=== PATIENT | male | born 1995 | race African-American/Black ===

== ENCOUNTER 2018-06-08 07:07 | Emergency (ER) | payer OTHER ==
[~2018-06-08] VITALS: Ht 188 cm; Wt 104.5 kg
[2018-06-08] MEDS ORDERED: ONDANSETRON 4MG/2ML VIAL (J2405) IV ONE (07:45)
[2018-06-08] MEDS ORDERED: GI COCKTAIL 50ML BTL(HYOSCYAMINE/MAALOX/LIDOCAINE VISCOUS)(1:3:1) PO ONE (07:45)
[2018-06-08 08:06] LABS: BASO % 0.3 % (0.0-1.0); EOS # 0.1 10^3/uL (0.0-0.50); EOS % 1.3 % (0.0-3.0); HEMOGLOBIN 15.6 g/dl (13.5-17.5); LYMPH # 2.6 10^3/uL (1.5-6.5); LYMPH % 43.8 % (24.0-44.0); MEAN CORPUSCULAR HEMOGLOBIN 29.5 pg (27.0-33.0); MEAN CORPUSCULAR HGB CONC 32.5 g/dl (32.0-36.5); MEAN CORPUSCULAR VOLUME 90.7 fl (80.0-96.0); MONO # 0.6 10^3/uL (0.0-0.8); MONO % 10.5 % (0.0-5.0); NEUTROPHILS # 2.6 10^3/uL (1.8-7.7); NEUTROPHILS % 43.9 % (36.0-66.0); PLATELET COUNT, AUTOMATED 192 10^3/uL (150-450); RED BLOOD COUNT 5.29 10^6/uL (4.30-6.10)
[2018-06-08 08:15] LABS: BLOOD UREA NITROGEN 13 MG/DL (7-18); CALCIUM LEVEL 9.2 MG/DL (8.5-10.1); CARBON DIOXIDE LEVEL 29 MEQ/L (21-32); CHLORIDE LEVEL 105 MEQ/L (98-107); CPK CREATINE PHOSPHOKINASE 450 U/L (39-308); CREATININE FOR GFR 1.03 MG/DL (0.70-1.30); GLOMERULAR FILTRATION RATE > 60.0 (>60); GLUCOSE, FASTING 113 MG/DL (70-100); MB/CK RELATIVE INDEX 0.56 (< OR =4); POTASSIUM SERUM 4.4 MEQ/L (3.5-5.1); SODIUM LEVEL 139 MEQ/L (136-145); TROPONIN I < 0.02 NG/ML (< 0.10)
[2018-06-08] MEDS ORDERED: PROTPAK PO (08:23)
--- NOTE | 2018-06-08 08:24 | REP ---
Portable chest: Single view. History: Chest pain. Comparison study: No comparison study. Findings: EKG monitoring electrodes overlie the chest. Lungs are well inflated and clear. Heart size is normal. Pulmonary vasculature is not increased. The pleural angles are sharp. No bony abnormality is seen. Impression: Negative portable chest x-ray. Electronically Signed by Tone Álvarez MD 06/08/2018 08:15 A
[2018-06-08 09:00] VITALS: BP 143/67
--- NOTE | 2018-06-08 18:41 | ECGEPIP ---
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
== END 2018-06-08 09:19 | disposition home or self-care (01) ==
LOC: M ED 07:07
DX: K21.9 Gastro-esophageal reflux disease without esophagitis (principal); I44.0 Atrioventricular block, first degree
CPT/HCPCS: 71045; 80048; 82550; 82553; 84484; 85025; 93005; 93041; 94760; 96374; 99284; J2405

== ENCOUNTER 2018-09-03 21:41 | Emergency (ER) | payer OTHER ==
[~2018-09-03] VITALS: Ht 185.4 cm; Wt 100.0 kg
[~2018-09-03 21:41] MED LIST: PROTPAK PO
[2018-09-03] MEDS ORDERED: CHLO125TA PO (21:51)
[2018-09-03] MEDS ORDERED: CARV25TA PO (21:51)
[2018-09-03] MEDS ORDERED: LISI10TA4 PO (21:52)
[2018-09-03] MEDS ORDERED: NORCO, ANEXSIA 5/325MG TABLET (HYDROcodone/ACETAMINOPHEN) PO ONE (23:15)
--- NOTE | 2018-09-03 23:19 | REPVR ---
EXAM: CT Head Without Contrast EXAM DATE/TIME: 09/03/2018 10:40 PM CLINICAL HISTORY: 23 years old, male; Signs and symptoms; Syncope and collapse; Additional info: Trauma TECHNIQUE: Imaging protocol: Axial computed tomography images of the head without contrast. Radiation optimization: All CT scans at this facility use at least one of these dose optimization techniques: automated exposure control; mA and/or kV adjustment per patient size (includes targeted exams where dose is matched to clinical indication); or iterative reconstruction. COMPARISON: No relevant prior studies available. FINDINGS: Brain: No CT evidence of acute intracranial hemorrhage or acute territorial infarction. No significant mass effect or midline shift. Basal cisterns patent. Ventricles: Normal in size and configuration. Bones/joints: No acute osseous abnormality. Sinuses: Minimal ethmoid mucosal thickening. Mastoid air cells: Grossly unremarkable. Soft tissues: Grossly unremarkable. IMPRESSION: 1. No CT evidence of acute intracranial pathology. 2. Additional findings, as above. Electronically signed by: Alonzo Casarez On 09/03/2018 23:19:28 PM
--- NOTE | 2018-09-03 23:21 | REPVR ---
EXAM: CT Cervical Spine Without Contrast EXAM DATE/TIME: 09/03/2018 10:40 PM CLINICAL HISTORY: 23 years old, male; Neck pain; Additional info: Trauma TECHNIQUE: Imaging protocol: Axial computed tomography images of the cervical spine without contrast. Coronal and sagittal reformatted images were created and reviewed. Radiation optimization: All CT scans at this facility use at least one of these dose optimization techniques: automated exposure control; mA and/or kV adjustment per patient size (includes targeted exams where dose is matched to clinical indication); or iterative reconstruction. COMPARISON: No relevant prior studies available. FINDINGS: Vertebrae: Mild reversal of the normal cervical lordosis. Alignment anatomic. No CT evidence of acute fracture, dislocation or subluxation. Vertebral body heights maintained. Discs/Spinal canal/Neural foramina: Intervertebral disc spaces preserved. No significant spinal canal or neural foraminal stenosis. Soft tissues: Grossly unremarkable. Lungs: Grossly unremarkable. IMPRESSION: 1. No CT evidence of acute cervical spine traumatic injury. 2. Additional findings, as above. Electronically signed by: Alonzo Casarez On 09/03/2018 23:21:40 PM
[2018-09-04 01:26] VITALS: BP 150/98
--- NOTE | 2018-09-04 03:46 | REP ---
Clinical: Right shoulder pain with prior trauma . Technique: Internal rotation, external rotation, and Y view. Findings: No acute fracture or dislocation. The acromioclavicular and glenohumeral joints are intact. No periarticular calcifications or degenerative changes are appreciated. Sub acromial space is normal. Surrounding soft tissues are unremarkable. Impression: Normal right shoulder radiographs. Electronically Signed by Ja Talavera MD 09/04/2018 03:37 A
--- NOTE | 2018-09-05 07:36 | ECGEPIP ---
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
== END 2018-09-04 01:46 | disposition home or self-care (01) ==
LOC: M ED 21:41
DX: M79.621 Pain in right upper arm (principal); F41.0 Panic disorder [episodic paroxysmal anxiety]

== ENCOUNTER 2018-10-03 17:44 | Emergency (ER) | payer OTHER ==
[~2018-10-03] VITALS: Ht 188 cm; Wt 100.0 kg
[2018-10-03 17:44] VITALS: BP 181/98
[~2018-10-03 17:44] MED LIST changes: +CARV25TA PO; +CHLO125TA PO; +LISI10TA4 PO
[2018-10-03] MEDS ORDERED: BENA25CA4 PO (17:49)
== END 2018-10-03 18:49 | disposition left against medical advice (07) ==
LOC: M ED 17:44
DX: Z53.21 Procedure and treatment not carried out due to patient leaving prior to being seen by health care provider (principal)

== ENCOUNTER 2018-11-19 11:02 | Emergency (ER) | payer OTHER ==
[~2018-11-19] VITALS: Ht 185.4 cm; Wt 106.2 kg
[2018-11-19 11:02] VITALS: BP 185/107
[~2018-11-19 11:02] MED LIST changes: +BENA25CA4 PO
== END 2018-11-19 13:40 | disposition left against medical advice (07) ==
LOC: M ED 11:02
DX: Z53.21 Procedure and treatment not carried out due to patient leaving prior to being seen by health care provider (principal)

== ENCOUNTER 2019-12-02 07:17 | Emergency (ER) | payer OTHER ==
[~2019-12-02] VITALS: Ht 185.4 cm; Wt 100.0 kg
[2019-12-02] MEDS ORDERED: GI COCKTAIL 50ML BTL(HYOSCYAMINE/MAALOX/LIDOCAINE VISCOUS)(1:3:1) PO ONE (07:45)
[2019-12-02 08:02] LABS: BASO % 0.2 % (0.0-1.0); EOS # 0.1 10^3/uL (0.0-0.5); HEMATOCRIT 43.2 % (42.0-52.0); HEMOGLOBIN 14.4 g/dl (13.5-17.5); LYMPH # 2.5 10^3/uL (1.5-5.0); LYMPH % 42.8 % (24.0-44.0); MEAN CORPUSCULAR HEMOGLOBIN 30.6 pg (27.0-33.0); MEAN CORPUSCULAR HGB CONC 33.3 g/dl (32.0-36.5); MEAN CORPUSCULAR VOLUME 91.9 fl (80.0-96.0); MONO # 0.6 10^3/uL (0.0-0.8); MONO % 9.7 % (0.0-5.0); NEUTROPHILS # 2.7 10^3/uL (1.5-8.5); NEUTROPHILS % 46.1 % (36.0-66.0); PLATELET COUNT, AUTOMATED 170 10^3/uL (150-450); WHITE BLOOD COUNT 5.9 10^3/uL (4.0-10.0)
[2019-12-02 08:12] LABS: INR 0.89; PROTHROMBIN TIME 12.2 SECONDS (11.8-14.0)
[2019-12-02 08:13] LABS: PARTIAL THROMBOPLASTIN TIME 23.5 SECONDS (25.0-38.4)
[2019-12-02 08:25] LABS: ERYTHROCYTE SEDIMENTATION RATE 2 mm/hr (0-15)
[2019-12-02 08:33] LABS: ALBUMIN 3.8 GM/DL (3.2-5.2); ALT/SGPT 64 U/L (12-78); BILIRUBIN,DIRECT < 0.1 MG/DL (0.0-0.2); BILIRUBIN,TOTAL 0.4 MG/DL (0.2-1.0); BLOOD UREA NITROGEN 7 MG/DL (7-18); CALCIUM LEVEL 8.9 MG/DL (8.5-10.1); CARBON DIOXIDE LEVEL 25 MEQ/L (21-32); CHLORIDE LEVEL 108 MEQ/L (98-107); CPK CREATINE PHOSPHOKINASE 454 U/L (39-308); CREATININE FOR GFR 1.12 MG/DL (0.70-1.30); GLOMERULAR FILTRATION RATE > 60.0 (>60); GLUCOSE, FASTING 113 MG/DL (70-100); MB/CK RELATIVE INDEX 0.66 (< OR =4); POTASSIUM SERUM 3.7 MEQ/L (3.5-5.1); SODIUM LEVEL 141 MEQ/L (136-145); TOTAL PROTEIN 7.6 GM/DL (6.4-8.2); TROPONIN I < 0.02 NG/ML (< 0.10)
[2019-12-02] MEDS ORDERED: KETOROLAC 30 MG/ML 1ML VIAL IV ONE (09:00)
[2019-12-02] MEDS ORDERED: PRIL20TA2 PO (09:17)
[2019-12-02] MEDS ORDERED: SUCR1TA PO (09:17)
[2019-12-02 09:40] VITALS: BP 167/74
--- NOTE | 2019-12-11 11:34 | ECGEPIP ---
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
--- NOTE | 2019-12-30 10:51 | REP ---
PORTABLE CHEST X-RAY CLINICAL: Chest pain. COMPARISON: 06/08/2018. FINDINGS: Mediastinum and cardiac silhouette normal. Lung duenas clear without focal consolidation, effusion, or pneumothorax. Skeletal structures are intact. IMPRESSION: No acute cardiopulmonary process or focal consolidation. MTDD
== END 2019-12-02 09:41 | disposition home or self-care (01) ==
LOC: M ED 07:17 → EDBD 07:17 → M ED 09:41
DX: K21.0 Gastro-esophageal reflux disease with esophagitis (principal); F17.200 Nicotine dependence, unspecified, uncomplicated; Z91.018 Allergy to other foods; I44.0 Atrioventricular block, first degree

== ENCOUNTER 2019-12-02 18:17 | Emergency (ER) | payer OTHER ==
[~2019-12-02] VITALS: Ht 185.4 cm; Wt 113.9 kg
[~2019-12-02 18:17] MED LIST changes: +PRIL20TA2 PO; +SUCR1TA PO
[2019-12-02] MEDS ORDERED: GI COCKTAIL 50ML BTL(HYOSCYAMINE/MAALOX/LIDOCAINE VISCOUS)(1:3:1) PO ONE (20:00)
[2019-12-02] MEDS ORDERED: SUCRALFATE 1 GM TAB PO ONE (20:00)
[2019-12-02] MEDS ORDERED: FAMOTIDINE 20 MG TAB PO ONE (20:00)
[2019-12-02] MEDS ORDERED: OMEPRAZOLE 20 MG CAP PO ONE (20:00)
[2019-12-02 20:34] LABS: BASO % 0.3 % (0.0-1.0); EOS # 0.1 10^3/uL (0.0-0.5); EOS % 0.6 % (0.0-3.0); HEMATOCRIT 44.4 % (42.0-52.0); HEMOGLOBIN 14.8 g/dl (13.5-17.5); LYMPH # 2.9 10^3/uL (1.5-5.0); LYMPH % 37.5 % (24.0-44.0); MEAN CORPUSCULAR HEMOGLOBIN 30.5 pg (27.0-33.0); MEAN CORPUSCULAR HGB CONC 33.3 g/dl (32.0-36.5); MEAN CORPUSCULAR VOLUME 91.4 fl (80.0-96.0); MONO # 0.7 10^3/uL (0.0-0.8); MONO % 8.8 % (0.0-5.0); NEUTROPHILS # 4.1 10^3/uL (1.5-8.5); NEUTROPHILS % 52.7 % (36.0-66.0); PLATELET COUNT, AUTOMATED 182 10^3/uL (150-450); RED BLOOD COUNT 4.86 10^6/uL (4.30-6.10); WHITE BLOOD COUNT 7.7 10^3/uL (4.0-10.0)
[2019-12-02 20:46] LABS: INR 0.97; PROTHROMBIN TIME 13.1 SECONDS (11.8-14.0)
[2019-12-02 21:17] LABS: ALBUMIN 4.1 GM/DL (3.2-5.2); ALT/SGPT 64 U/L (12-78); BILIRUBIN,DIRECT 0.2 MG/DL (0.0-0.2); BILIRUBIN,TOTAL 0.9 MG/DL (0.2-1.0); CK-MB VALUE MASS 2.9 NG/ML (<3.6); CPK CREATINE PHOSPHOKINASE 504 U/L (39-308); LIPASE 174 U/L (73-393); MB/CK RELATIVE INDEX 0.58 (< OR =4); TOTAL PROTEIN 7.9 GM/DL (6.4-8.2); TROPONIN I < 0.02 NG/ML (< 0.10)
[2019-12-02 22:59] VITALS: BP 179/85
--- NOTE | 2019-12-17 13:46 | ECGEPIP ---
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
--- NOTE | 2019-12-30 10:43 | REP ---
PORTABLE CHEST X-RAY: HISTORY: Chest pain. FINDINGS: Mediastinum and cardiac silhouette are normal. Lung duenas are clear. No consolidation, effusion or pneumothorax. Skeletal structures are intact. IMPRESSION: Normal portable chest x-ray. MTDD
== END 2019-12-02 23:00 | disposition home or self-care (01) ==
LOC: M ED 18:17
DX: K21.9 Gastro-esophageal reflux disease without esophagitis (principal); R00.1 Bradycardia, unspecified
CPT/HCPCS: 71045; 80047; 80048; 80076; 82550; 82553; 83690; 84443; 84484; 85025; 85610; 85652; 85730; 86140; 93005; 93041; 99284; J1885

== ENCOUNTER 2020-01-15 10:30 | Emergency (ER) | payer OTHER ==
[~2020-01-15] VITALS: Ht 185.4 cm; Wt 112.9 kg
[2020-01-15] MEDS ORDERED: PANTOPRAZOLE 40MG VIAL (C9113 PER 1) IV ONE (11:30)
[2020-01-15] MEDS ORDERED: NS 1,000 ML IV ONE (11:30)
[2020-01-15 11:54] LABS: BASO % 0.2 % (0.0-1.0); EOS # 0.1 10^3/uL (0.0-0.5); EOS % 1.2 % (0.0-3.0); HEMATOCRIT 46.9 % (42.0-52.0); HEMOGLOBIN 15.3 g/dl (13.5-17.5); LYMPH # 2.7 10^3/uL (1.5-5.0); LYMPH % 43.9 % (24.0-44.0); MEAN CORPUSCULAR HEMOGLOBIN 29.9 pg (27.0-33.0); MEAN CORPUSCULAR HGB CONC 32.6 g/dl (32.0-36.5); MEAN CORPUSCULAR VOLUME 91.6 fl (80.0-96.0); MONO # 0.4 10^3/uL (0.0-0.8); MONO % 7.1 % (0.0-5.0); NEUTROPHILS # 2.9 10^3/uL (1.5-8.5); NEUTROPHILS % 47.4 % (36.0-66.0); PLATELET COUNT, AUTOMATED 212 10^3/uL (150-450); RED BLOOD COUNT 5.12 10^6/uL (4.30-6.10)
[2020-01-15 12:12] LABS: ALBUMIN 4.3 GM/DL (3.2-5.2); BILIRUBIN,DIRECT 0.2 MG/DL (0.0-0.2); BILIRUBIN,TOTAL 0.7 MG/DL (0.2-1.0)
[2020-01-15] MEDS ORDERED: OMEP-218 PO (12:28)
[2020-01-15 12:43] VITALS: BP 150/90
== END 2020-01-15 12:46 | disposition home or self-care (01) ==
LOC: M ED 10:30
DX: R10.9 Unspecified abdominal pain (principal); R03.0 Elevated blood-pressure reading, without diagnosis of hypertension; K21.9 Gastro-esophageal reflux disease without esophagitis; F17.200 Nicotine dependence, unspecified, uncomplicated; Z91.018 Allergy to other foods; Z79.899 Other long term (current) drug therapy
CPT/HCPCS: 80047; 80076; 81001; 83690; 85025; 96361; 96374; 99284; C9113

== ENCOUNTER 2020-02-09 21:12 | Emergency (ER) | payer OTHER ==
[~2020-02-09] VITALS: Ht 185.4 cm; Wt 102.3 kg
[~2020-02-09 21:12] MED LIST changes: +OMEP-218 PO
[2020-02-09] MEDS ORDERED: LANS30CA PO (21:22)
[2020-02-09 22:59] VITALS: BP 136/88
== END 2020-02-09 23:01 | disposition home or self-care (01) ==
LOC: M ED 21:12
DX: F43.0 Acute stress reaction (principal); K27.9 Peptic ulcer, site unspecified, unspecified as acute or chronic, without hemorrhage or perforation; Z79.899 Other long term (current) drug therapy

== ENCOUNTER 2020-02-26 11:20 | Emergency (ER) | payer OTHER ==
[~2020-02-26] VITALS: Ht 182.9 cm; Wt 100.0 kg
[~2020-02-26 11:20] MED LIST changes: +LANS30CA PO
[2020-02-26] MEDS ORDERED: NS 1,000 ML IV SCH (12:29)
--- NOTE | 2020-02-26 12:53 | REP ---
INDICATION: Altered Mental Status COMPARISON: 12/02/2019 TECHNIQUE: Portable AP view of the chest FINDINGS: The mediastinum and cardiac silhouette are stable and within normal limits for portable technique. The lung duenas are clear without acute consolidation, effusion, or pneumothorax. Skeletal structures are intact. IMPRESSION: No acute cardiopulmonary process appreciated. <Electronically signed by Ja Talavera > 02/26/20 [id number]
--- NOTE | 2020-02-26 13:05 | REPVR ---
PROCEDURE INFORMATION: Exam: CT Head Without Contrast Exam date and time: 02/26/2020 12:48 PM Age: 25 years old Clinical indication: Altered mental status/memory loss TECHNIQUE: Imaging protocol: Computed tomography of the head without contrast. Radiation optimization: All CT scans at this facility use at least one of these dose optimization techniques: automated exposure control; mA and/or kV adjustment per patient size (includes targeted exams where dose is matched to clinical indication); or iterative reconstruction. COMPARISON: CT Head without contrast 09/03/2018 10:27 PM FINDINGS: Brain: There is no acute intracranial hemorrhage. No extra-axial fluid collection. No evidence of acute infarct. Swartz white differentiation is intact. There is no evidence of mass. There is no mass effect or midline shift. Cerebral ventricles: No ventriculomegaly. Bones/joints: No acute fracture. Paranasal sinuses: Visualized sinuses are unremarkable. No fluid levels. Mastoid air cells: No significant mastoid effusion. Soft tissues: Unremarkable as visualized. IMPRESSION: No evidence of acute intracranial abnormality. No acute hemorrhage. No evidence of acute infarct or mass. Electronically signed by: Raquel Kwan On 02/26/2020 13:05:12 PM
[2020-02-26 13:52] LABS: BASO % 0.3 % (0.0-1.0); EOS # 0.1 10^3/uL (0.0-0.5); EOS % 0.8 % (0.0-3.0); HEMATOCRIT 44.8 % (42.0-52.0); HEMOGLOBIN 14.9 g/dl (13.5-17.5); LYMPH # 1.9 10^3/uL (1.5-5.0); LYMPH % 29.6 % (24.0-44.0); MEAN CORPUSCULAR HGB CONC 33.3 g/dl (32.0-36.5); MEAN CORPUSCULAR VOLUME 93.3 fl (80.0-96.0); MONO # 0.5 10^3/uL (0.0-0.8); MONO % 7.9 % (0.0-5.0); NEUTROPHILS # 3.9 10^3/uL (1.5-8.5); NEUTROPHILS % 60.9 % (36.0-66.0); PLATELET COUNT, AUTOMATED 199 10^3/uL (150-450); WHITE BLOOD COUNT 6.4 10^3/uL (4.0-10.0)
[2020-02-26 14:13] LABS: AMPHETAMINES LEVEL URINE NEGATIVE (NEGATIVE); BARBITURATES URINE NEGATIVE (NEGATIVE); BENZODIAZEPINES URINE NEGATIVE (NEGATIVE); CANNABINOIDS URINE NEGATIVE (NEGATIVE); COCAINE METABOLITE URINE NEGATIVE (NEGATIVE); METHADONE URINE NEGATIVE (NEGATIVE); OPIATES URINE NEGATIVE (NEGATIVE); PHENCYCLIDINE URINE NEGATIVE (NEGATIVE)
[2020-02-26 14:29] LABS: ACETAMINOPHEN LEVEL < 2.0 UG/ML (10.0-30.0); ALBUMIN 4.4 GM/DL (3.2-5.2); ALT/SGPT 51 U/L (12-78); BILIRUBIN,DIRECT 0.2 MG/DL (0.0-0.2); BLOOD UREA NITROGEN 12 MG/DL (7-18); CALCIUM LEVEL 9.7 MG/DL (8.5-10.1); CARBON DIOXIDE LEVEL 26 MEQ/L (21-32); CHLORIDE LEVEL 104 MEQ/L (98-107); CK-MB VALUE MASS 3.1 NG/ML (<3.6); CPK CREATINE PHOSPHOKINASE 304 U/L (39-308); CREATININE FOR GFR 1.09 MG/DL (0.70-1.30); ETHYL ALCOHOL (ETHANOL) 0.005 % (0.000-0.010); GLOMERULAR FILTRATION RATE > 60.0 (>60); GLUCOSE, FASTING 97 MG/DL (70-100); MB/CK RELATIVE INDEX 1.02 (< OR =4); POTASSIUM SERUM 4.1 MEQ/L (3.5-5.1); SALICYLATE LEVEL < 1.7 MG/DL (5.0-30.0); SODIUM LEVEL 138 MEQ/L (136-145); TOTAL PROTEIN 7.8 GM/DL (6.4-8.2); TROPONIN I < 0.02 NG/ML (< 0.10)
[2020-02-26 15:00] VITALS: BP 152/93
--- NOTE | 2020-02-27 07:31 | ECGEPIP ---
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
== END 2020-02-26 15:02 | disposition home or self-care (01) ==
LOC: M ED 11:20 → EDBD 11:20 → M ED 15:02
DX: R55 Syncope and collapse (principal); R53.1 Weakness; K21.9 Gastro-esophageal reflux disease without esophagitis; Z91.018 Allergy to other foods; Z79.899 Other long term (current) drug therapy
CPT/HCPCS: 36415; 70450; 71045; 80048; 80076; 80307; 82550; 82553; 84443; 84484; 85025; 93005; 93041; 94760; 96360; 99285; G0480

== ENCOUNTER 2021-01-06 22:11 | Emergency (ER) | payer OTHER ==
[~2021-01-06] VITALS: Ht 185.4 cm; Wt 106.8 kg
[~2021-01-06 22:11] MED LIST changes: +LISI10TA22 PO; -LISI10TA4 PO
[2021-01-06 23:12] LABS: HEMATOCRIT 44.4 % (42.0-52.0); MEAN CORPUSCULAR HEMOGLOBIN 30.3 pg (27.0-33.0); MEAN CORPUSCULAR HGB CONC 33.8 g/dl (32.0-36.5); MEAN CORPUSCULAR VOLUME 89.7 fl (80.0-96.0); PLATELET COUNT, AUTOMATED 195 10^3/uL (150-450); RED BLOOD COUNT 4.95 10^6/uL (4.30-6.10); WHITE BLOOD COUNT 5.7 10^3/uL (4.0-10.0)
[2021-01-06 23:31] VITALS: BP 182/107
[2021-01-06 23:46] LABS: ATYPICAL LYMPH 8 % (0-5); EOSINOPHILS 1 % (0-3); LYMPHOCYTES 38 % (16-44); MONOCYTES 6 % (0-5); NEUTROPHILS 47 % (28-66); NUCLEATED RED BLOOD CELL 1 % (0-0)
[2021-01-06 23:47] LABS: PLATELET ESTIMATE NORMAL (NORMAL)
[2021-01-06 23:52] LABS: ALBUMIN 3.8 GM/DL (3.2-5.2); ALT/SGPT 65 U/L (12-78); BILIRUBIN,DIRECT 0.2 MG/DL (0.0-0.2); BLOOD UREA NITROGEN 10 MG/DL (7-18); CALCIUM LEVEL 9.1 MG/DL (8.5-10.1); CARBON DIOXIDE LEVEL 28 MEQ/L (21-32); CHLORIDE LEVEL 104 MEQ/L (98-107); CK-MB VALUE MASS 1.2 NG/ML (<3.6); CPK CREATINE PHOSPHOKINASE 296 U/L (39-308); CREATININE FOR GFR 1.06 MG/DL (0.70-1.30); GLOMERULAR FILTRATION RATE > 60.0 (>60); GLUCOSE, FASTING 103 MG/DL (70-100); LIPASE 230 U/L (73-393); MB/CK RELATIVE INDEX 0.41 (< OR =4); POTASSIUM SERUM 3.9 MEQ/L (3.5-5.1); SODIUM LEVEL 138 MEQ/L (136-145); TOTAL PROTEIN 7.5 GM/DL (6.4-8.2); TROPONIN I < 0.02 NG/ML (< 0.10)
--- NOTE | 2021-01-07 00:31 | REPVR ---
PROCEDURE INFORMATION: Exam: XR Chest Exam date and time: 01/06/2021 10:48 PM Age: 25 years old Clinical indication: Chest pain TECHNIQUE: Imaging protocol: XR of the chest. Views: 1 view. COMPARISON: CR PORTABLE CHEST X-RAY 02/26/2020 12:40 PM FINDINGS: Lungs: Unremarkable. No consolidation. Pleural spaces: Unremarkable. No pleural effusion. No pneumothorax. Heart/Mediastinum: Unremarkable. No cardiomegaly. Bones/joints: Unremarkable. IMPRESSION: No acute infiltrates. Electronically signed by: Tony Cifuentes On 01/07/2021 00:31:08 AM
--- NOTE | 2021-01-07 04:32 | ECGEPIP ---
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
== END 2021-01-07 02:00 | disposition home or self-care (01) ==
LOC: M ED 22:11
DX: R03.0 Elevated blood-pressure reading, without diagnosis of hypertension (principal); T50.905A Adverse effect of unspecified drugs, medicaments and biological substances, initial encounter; R00.1 Bradycardia, unspecified; I10 Essential (primary) hypertension; F41.9 Anxiety disorder, unspecified; F17.200 Nicotine dependence, unspecified, uncomplicated; Z79.899 Other long term (current) drug therapy; Z91.018 Allergy to other foods